=== PATIENT | male | born 1985 | race Caucasian/White ===

== ENCOUNTER 2024-01-15 11:18 | Emergency (ER) | payer BC ==
[2024-01-15] MEDS: Naproxen 500 MG Tab PO ONE (13:06)
== END 2024-01-15 13:07 | disposition home or self-care (01) ==
LOC: JD.ED 11:18
DX: M54.12 Radiculopathy, cervical region (principal); Z88.0 Allergy status to penicillin
CPT/HCPCS: 72040; 99283; A9270